=== PATIENT | female | born 1970 | race Caucasian/White ===

== ENCOUNTER → 2018-07-13 | Outpatient (CLI) | payer BC, OTHER ==
[~2018-07-13] MED LIST: ED-SPAZ0.125 MG PO; HYDROCODON-ACE1 EAC5 PO; KEFLEX500 MG; MACRODANTIN100 MG PO; TRAMADOL 50 MG50 MG PO; VOLTAREN 50MG T50 MG PO; [UNRECOGNIZED DRUG - OTHER]
--- NOTE | ~2018-07-13 | 2DMMODE ---
[facility] [place] [address] 2 D/M-MODE ECHOCARDIOGRAM Name: DOCTYLER BRADLEY Room #: REG CL [facility]#: [id number] Admission: 07/13/18 Attend Phys: Sam Barr MD Discharge: Date of : 68 Date of Service: 07/13/18 1536 Report #: [id number] THIS REPORT FOR: //name// APPROVED REPORT Study performed: 07/13/2018 13:14:54 EXAM: Comprehensive 2D, Doppler, and color-flow Echocardiogram Patient Location: Out-Patient Status: routine BSA: 1.79 HR: 72 bpm BP: 112/70 mmHg Rhythm: NSR Other Information Study Quality: Good Indications Tachycardia 2D Dimensions RVDd: 40.97 mm IVSd: 9.90 (7-11mm) LVOT Diam: 22.09 (18-24mm) LVDd: 41.30 mm PWd: 10.23 (7-11mm) Ascending Ao: 38.84 (22-36mm) LVDs: 25.72 (25-40mm) Aortic Root: 33.01 mm IVC: 21.00 mm Volumes Left Atrial Volume (Systole) Single Plane 4CH: 32.97 mL Single Plane 2CH: 44.94 mL LA ESV Index: 25.00 mL/m2 Aortic Valve AoV Peak Karthikeyan.: 0.98 m/s AO Peak Gr.: 3.84 mmHg LVOT Max P.25 mmHg LVOT Max V: 0.90 m/s YULIANA Vmax: 3.52 cm2 Mitral Valve E/A Ratio: 1.6 MV Decel. Time: 159.57 ms MV E Max Karthikeyan.: 0.78 m/s [facility] [address] [place] [address] 2 D/M-MODE ECHOCARDIOGRAM Name: TYLER ROACH Room #: REG [facility]#: [id number] Admission: 07/13/18 Attend Phys: Sam Barr MD Discharge: Date of : 68 Date of Service: 07/13/18 1536 Report #: [id number] MV A Karthikeyan.: 0.49 m/s MV PHT: 46.28 ms IVRT: 115.34 ms Pulmonary Valve PV Peak Karthikeyan.: 0.68 m/s PV Peak Gr.: 1.86 mmHg Pulmonary Vein P Vein S: 0.46 m/s P Vein A: 0.23 m/s P Vein D: 0.51 m/s P Vein A Dur.: 96.9 msec P Vein S/D Ratio: 0.90 Tricuspid Valve TR Peak Karthikeyan.: 2.05 m/s RAP Estimate: 5.00 mmHg TR Peak Gr.: 16.85 mmHg PA Pressure: 22.00 mmHg Left Ventricle The left ventricle is normal size. There is normal LV segmental wall motion. There is normal left ventricular wall thickness. The left ventricular systolic function is normal. LVEF is 55-60%. The left ventricular diastolic function is normal. Right Ventricle The right ventricle is normal size. The right ventricular systolic function is normal. Atria The left atrium size is normal. The right atrium size is normal. Aortic Valve The aortic valve is normal in structure. No aortic regurgitation is present. There is no aortic valvular stenosis. Mitral Valve There is mitral annular calcification. There is no mitral valve regurgitation noted. No evidence of mitral valve stenosis. Tricuspid Valve The tricuspid valve is normal in structure. Mild tricuspid regurgitation. Estimated PAP is 22mmHg. Pulmonic Valve The pulmonary valve is normal in structure. There is no pulmonic valvular regurgitation. [place] [id number] 2 D/M-MODE [facility]CHOCARDIOGRAM [facility]: REG [facility]#: [id number] Admission: 07/13/18 Attend Phys: Sam Barr MD Discharge: Date of : 68 Date of Service: 07/13/18 1536 Report #: [id number] Great Vessels The aortic root is normal in size. The ascending aorta is normal in size. IVC is normal in size and collapses >50% with inspiration. Pericardium There is no pericardial effusion. <Conclusion> The left ventricle is normal size. There is normal left ventricular wall thickness. The left ventricular systolic function is normal. The left ventricular diastolic function is normal. The right ventricle is normal size. The left atrium size is normal. The aortic valve is normal in structure. There is no mitral valve regurgitation noted. Mild tricuspid regurgitation. Estimated PAP is 22mmHg. <ELECTRONICALLY SIGNED> By: Sam Barr MD 07/13/18 1536 1536 1536 Sam Barr MD /INF
--- NOTE | ~2018-07-13 | EXE ---
[facility] [address] [place] [address] STRESS ECHOCARDIOGRAM Name: TYLER ROACH Room #: REG CL [facility]#: [id number] Admission: 07/13/18 Attend Phys: Sam Barr MD Discharge: Date of : 68 Date of Service: 07/13/18 1538 Report #: [id number] THIS REPORT FOR: //name// APPROVED REPORT Study performed: 07/13/2018 14:11:48 Exam: Stress Echocardiogram Indication: Chest pain Patient Location: Out-Patient Stress Nurse: Caty Miller RN, Malina Moralez RN Room #: Echo lab 2 Status: routine Ht: 5 ft 7 in HR: 71 bpm BP: 112/70 mmHg Rhythm: NSR Medical History Cardiac Risk Factors: FHX of CAD Exercise History: Physically active Procedure The patient underwent an Exercise Stress Test using the Morales Protocol. Blood pressure, heart rate, and EKG were monitored. An Echocardiogram was performed by sewing pattern layout technician in four stages in quad fashion. At peak stress, four selected images were obtained and placed side by side with resting images for comparison. Stress Test Details Stress Test: Exercise stress testing was performed using a Morales protocol. HR Resting HR: 71 bpm Max Heart Rate (APMHR): 171 bpm Max HR Achieved: 184 bpm Target HR (85% APMHR): 145 bpm % of APMHR: 107 Recovery HR: 102 bpm HR response to stress: Normal HR response to stress BP Resting BP: 112/70 mmHg Max BP: 132/84 mmHg Recovery BP: 102/70 mmHg ECG [facility] [address] [place] [address] STRESS ECHOCARDIOGRAM Name: TYLER ROACH EVELIN[facility]AYLEE Room #: REG CL [facility]#: [id number] Admission: 07/13/18 Attend Phys: Sam Barr MD Discharge: Date of : 68 Date of Service: 07/13/18 1538 Report #: [id number] Resting ECG: Sinus Rhythm Stress ECG: Sinus Rhythm, nonspecific ST-T abnormalities ST Change: Non-ischemic Clinical Reason for Termination: Maximal effort Exercise duration: 9 min 13 sec Highest Stage Achieved: Stage 4: 4.2 mph at 16% grade. Exercise capacity: 10.8 METs Overall Exercise Capacity for Age: Good Pre-Stress Echo The resting Echocardiogram showed normal left ventricular contractility with an estimated Ejection Fraction of about >55%. Normal wall motion in all segments on baseline images. Post-Stress Echo The stress Echocardiogram showed normal left ventricular contractility with an estimated Ejection Fraction of about 65-70%. Normal augmentation of wall motion in all segments on post stress images. Clinical Normal augmentation of myocardial wall segments using a 17 segment model. No clinical or ECG evidence for ischemia. Conclusion Clinical Response: Non-ischemic Exercise Capacity: Average Stress ECG Response: Non-ischemic Stress Echo Images: Non-ischemic The left ventricle is normal in size and wall thickness in both the rest and stress images. No prior study available for comparison. Other Information Study Quality: Good <Conclusion> The left ventricle is normal in size and wall thickness in both the rest and stress images. <ELECTRONICALLY SIGNED> By: Sam Barr MD 07/13/18 1538 1538 1538 Sam Barr MD /INF
== END ==
LOC: CV 12:19
DX: I07.1 Rheumatic tricuspid insufficiency (principal); I34.8 Other nonrheumatic mitral valve disorders